=== PATIENT | female | born 1965 | race Caucasian/White ===

== ENCOUNTER → 2020-06-20 | Emergency (ER) | payer OTHER ==
[~2020-06-20] VITALS: Ht 175.3 cm; Wt 71.2 kg
[~2020-06-20] MED LIST: IBUP-1957 PO; IBUPROFEN 600 MG TABLET ONE; IBUPROFEN 600 MG TABLET PO ONE
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
--- NOTE | 2020-06-20 01:48 | NUR ---
DR GU AT [facility] SIDE
--- NOTE | 2020-06-20 02:06 | NUR ---
PT IS MEDICALLY STABLE FOR D/C. PT VERBALLY ABUSIVE TO THE STAFF AND REFUSED TO SIGN THE DISCHARGE PAER AND HOMELESS WAIVER FORM,
--- NOTE | 2020-06-20 07:05 | NUR ---
gave report to XENA Jensen for [facility]
--- NOTE | 2020-06-20 10:13 | NUR ---
pt requesting for pain medication for her ankle pain. dr brown made aware.
[2020-06-20 10:36] VITALS: BP 127/75
--- NOTE | 2020-06-20 10:37 | NUR ---
Patient discharged to home in stable condition. Written and verbal after care instructions given. Patient verbalizes understanding of instruction. the patient left ER in stable condiiton and alert and oriented x4.
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
== END | disposition home or self-care (01) ==
LOC: EDSEX 01:28 → ER 01:28
DX: G89.29 Other chronic pain (principal); M25.572 Pain in left ankle and joints of left foot; E11.9 Type 2 diabetes mellitus without complications; F32.9 Major depressive disorder, single episode, unspecified; M06.9 Rheumatoid arthritis, unspecified; F17.200 Nicotine dependence, unspecified, uncomplicated; Z88.2 Allergy status to sulfonamides; Z59.0 Homelessness